=== PATIENT | male | born 1980 | race Caucasian/White ===

== ENCOUNTER 2018-05-28 19:37 | Emergency (ER) | payer MEDICAID ==
[2018-05-28] MEDS: HYDROCODONE/APAP (10/325) TAB PO (20:37)
[2018-05-28] MEDS: OPHTHALMIC IRRIG SOLUTION 120 ML RIGHT EYE (20:38)
[2018-05-28] MEDS: FLUORESCEIN STRIP RIGHT EYE (20:47)
[2018-05-28] MEDS: TETRACAINE 0.5% 4 ML OPH RIGHT EYE (20:47)
== END 2018-05-29 02:39 | disposition home or self-care (01) ==
LOC: FTE 05-29 02:39
DX: H10.31 Unspecified acute conjunctivitis, right eye (principal); E11.9 Type 2 diabetes mellitus without complications
CPT/HCPCS: 76536; 82962; 99284-25